=== PATIENT | male | born 1960 | race Asian ===

== ENCOUNTER 2020-08-16 20:30 | Emergency (ER) | payer OTHER ==
[~2020-08-16] VITALS: Ht 162.6 cm; Wt 110.7 kg
[2020-08-16 20:30] VITALS: BP 180/98; TEMP 98
[2020-08-16 21:28] LABS: PLATELET COUNT 271 K/uL (142-355)
[2020-08-16 21:42] LABS: POTASSIUM 3.8 mmol/L (3.6-5.2)
[2020-08-16] MEDS ORDERED: LOPRESSOR100 MG PO (23:06)
[2020-08-16] MEDS ORDERED: BISACODYL LAXAT10 MG RE (23:07)
[2020-08-16] MEDS ORDERED: DIPH25CA90 PO (23:09)
[2020-08-16] MEDS ORDERED: CLONIDINE HYDR0.1 M2 PO (23:11)
[2020-08-16] MEDS ORDERED: TYLENOL325 M1 PO (23:15)
[2020-08-16] MEDS ORDERED: MILK OF MA400 MG/5 M PO (23:17)
[2020-08-16] MEDS ORDERED: HYDRALAZINE25 MG PO (23:18)
[2020-08-16] MEDS ORDERED: BUSPIRONE5 MG PO (23:19)
[2020-08-16] MEDS ORDERED: COZAAR100 MG PO (23:20)
[2020-08-16] MEDS ORDERED: CRESTOR20 MG PO (23:21)
[2020-08-16] MEDS ORDERED: AMLODIPINE BESYLATE PO (23:21)
[2020-08-16] MEDS ORDERED: DOCU SOFT100 MG PO (23:22)
[2020-08-16] MEDS ORDERED: CLOPIDOGREL75 MG PO (23:23)
[2020-08-16] MEDS ORDERED: TAMS0.4C PO (23:24)
[2020-08-16] MEDS ORDERED: MIRALAX17 GM PO (23:39)
[2020-08-16] MEDS ORDERED: PANTOPRAZOLE 40MG TA PO ×2 (23:40→23:41)
[2020-08-16] MEDS ORDERED: TRAZODONE HYDR150 MG PO (23:42)
== END 2020-08-16 22:20 | disposition other institution (70) ==
LOC: ED 20:50
PROVIDERS: Family Medicine
DX: R45.86 Emotional lability (principal); Z11.52 Encounter for screening for COVID-19; Z04.6 Encounter for general psychiatric examination, requested by authority
CPT/HCPCS: 36415; 80053; 85027; 87635; 93005; 99283; U0003